=== PATIENT | female | born 1990 | race Caucasian/White ===

== ENCOUNTER 2024-01-03 09:08 | Outpatient (CLI) | payer OTHER, SELFPAY ==
[2024-01-03 09:34] LABS: Basophils Absolute Auto 0.1 K/mm3 (0.0-0.1); Eosinophils Absolute Auto 0.3 K/mm3 (0-0.3); Eosinophils Percent Auto 4.7 % (0-4.4); Hematocrit 42.4 % (37.0-47.0); Hemoglobin 13.8 g/dL (12.0-15.0); Immature Granulocyte Absolute 0.02 K/mm3 (0.00-0.031); Immature Granulocyte Percent A 0.3 % (0-0.5); Lymphocytes Absolute Auto 2.71 K/mm3 (0.9-3.2); Lymphocytes Percent Auto 38.7 % (18.3-44.2); Mean Corpuscular HGB Conc 32.5 g/dl (32-36); Mean Corpuscular Hemoglobin 29.5 pg (26-34); Mean Corpuscular Volume 90.6 fl (80-100); Mean Platelet Volume 8.4 fl (7.4-10.4); Monocytes Absolute Auto 0.6 K/mm3 (0.1-0.6); Monocytes Percent Auto 8.3 % (2.6-8.5); Neutrophils Absolute Auto 3.3 K/mm3 (1.3-6.7); Platelet Count Result 333 k/mm3 (150-375); Red Blood Count 4.68 M/mm3 (4.2-5.4); Red Cell Distribution Width 12.4 % (11.5-14.5)
== END 2024-01-03 09:09 | disposition home or self-care (01) ==
LOC: ANHSURGERY 09:19
PROVIDERS: Visit Provider Obstetrics & Gynecology
DX: Z01.818 Encounter for other preprocedural examination (principal); N94.6 Dysmenorrhea, unspecified
CPT/HCPCS: 36415; 85025; 86850; 86900; 86901

== ENCOUNTER 2024-01-06 00:45 | Day surgery (SDC) | payer OTHER, SELFPAY ==
[2023-12-30 10:01] VITALS: BMI 28.5
--- NOTE | 2023-12-30 10:08 | PC.NURSE ---
Report to the Outpatient Waiting Room, entrance under the green pavilion located off [facility], at time _0730_ on date _[id number]_. Planned Procedure Time: _0930_. Time changes happen often and if your time is changed the preop area will call you the afternoon before. - You and your visitor will be asked to self-screen and do not enter if you have any COVID symptoms. - A mask is optional within the hospital at this time. Patients may have clear liquids (water, carbonated beverages, clear teas, apple juice) until 3 hours prior to surgery with a maximum of 20 ounces. - No food from midnight until time of surgery Take the following medications with a SIP of water the morning of surgery: __Bupropion DO NOT STOP ANY OF YOUR OTHER PRESCRIPTION MEDICATIONS PRIOR TO SURGERY ?EXCEPT THE FOLLOWING Medications to discontinue per physician ____None Date to take last dose Please no make-up, nail paraguayan, hairspray, perfume, deodorant, or body powder the day of surgery. No jewelry (including any body piercings) or valuables the day of surgery, leave them at home. Please take a shower or bath the night before, or the morning of, surgery with an antibacterial soap. Wear comfortable, loose fitting clothing. - Jewelry must be removed prior to entering the operating room. Rings and piercings that are not removed may be cut off. - The hospital will not accept responsibility for valuables. - Please leave all valuables, including medications, at home the day of surgery. If you are going home after surgery, a licensed powder truck driver must drive you home. - NO public transportation without another adult if you receive anesthesia. - We recommend that an adult stay with you for 24 hours following discharge. - We also recommend that you do not drive, make important decision, drink alcoholic beverages, or take any drugs that were not prescribed by your health care provider for at least 24 hours after your discharge time. Follow any additional instructions given to you from your surgeon. If you or anyone in your household have experienced Covid symptoms in the past week, please notify your surgeon or the nurse liaison at the phone number below for possible testing. Telephone instructions given to _Michelle__and asked if any additional questions and then verbalized understanding. Patient advised to call surgeon office or pre surgery nurse liaison [phone] if any additional questions.
--- NOTE | 2024-01-03 06:54 | PM.IMHP ---
H&P: HPI History of Present Illness Date/Time: 01/03/24 06:54 Chief Complaint: Pelvic pain and prolapse Narrative: 33-year-old 2 para 2 admitted for robotic hysterectomy and bilateral salpingectomy secondary to second-degree prolapse bleeding this been refractory to medical therapy. She also has pelvic pain. She opts for hysterectomy. Risks and benefits reviewed including not exclusive of , aspiration pneumonia, bleeding, transfusion, perforation injury to bowel, bladder, ureters, or other internal organs with need for open laparotomy. She received the [employer] handout entitled hysterectomy as well as the Tai handout. She had all questions answered. She asked to proceed PMF Social History Social History Smoking packs per day: 0.5 Smoking cigarettes per day: 10.0 Years smoked: 10 Smoking pack-years: 5.00 Smoking status: Current every day smoker Tobacco type: cigarettes Living arrangements: with family Spiritual care concerns: No Meds Home Medications and Allergies Home Medications Medication Instructions Recorded Confirmed Type bupropion HCl 100 mg tablet 100 mg PO BID 12/30/23 12/30/23 History Allergies Allergy/AdvReac Type Severity Reaction Status Date / Time No Known Allergies Allergy Verified 12/30/23 10:00 Exam Const: General: cooperative, healthy appearing and comfortable Orientation/consciousness: oriented to person, oriented to place and oriented to time HENMT: Head: normal to inspection Resp: Effort & Inspection: normal respiratory effort Cardio: Rate: regular rate Rhythm: regular rhythm Heart sounds: S1 normal heart sound present and S2 normal heart sound present GI: Inspection: normal to inspection Auscultation: normal bowel sounds : External Female Exam: normal external appearance Speculum Exam - Vagina: normal appearance of the vagina Speculum Exam - Cervix: normal appearance of the cervix (Second-degree prolapse noted) Bimanual exam- vagina & uterus: enlarged and Uterine tenderness Bimanual Exam- Adnexa, other: normal adnexae Assessment and Plan Assessment and plan (1) Uterine prolapse: Code(s): N81.4 - Uterovaginal prolapse, unspecified Status: Acute (2) Pelvic pain: Code(s): R10.2 - Pelvic and perineal pain Status: Acute Plan Robotic total vaginal hysterectomy and bilateral salpingectomy
[2024-01-06] VITALS (9 sets, daily range): BP systolic 120–151; BP diastolic 71–90; PULSE 71–99; RESP 12–17; TEMP 36.3–36.9; O2SAT 98–100; BMI 29.1
--- NOTE | 2024-01-06 05:15 | WPDHPUPDATE1 ---
History and Physical Update Update Date/Time: 01/06/24 05:15 History and Physical has been reviewed, including an updated exam of the patient. There are NO changes in the patient's condition. Risks, benefits, and alternatives have been discussed and questions answered. Patient agrees to proceed with procedure.
[2024-01-06] MEDS: ACETAMINOPHEN 500 MG TABLET 1000 MG PO (07:57)
[2024-01-06] MEDS: KETOROLAC 15 MG/ML VIAL (*BKC) IV PUSH (07:57)
--- NOTE | 2024-01-06 08:45 | WPDANESEPPF ---
Anes - Initial Pre Proc Eval Procedure: Operation Date: 01/06/24 09:30 Proposed Procedures p Robotic Assisted Total Vaginal Hysterectomy with Bilateral Salpingectomy - Yossi West MD Date/Time: 01/06/24 08:45 Surgeon: Yossi West MD Pre Op Diagnosis: uterine prolapse, pelvic pain, dysmenorrhea, Patient Data Age: 33 Gender: F Height: 1.75 m Weight: 89.6 kg Last Vital Signs Temp 97.3 F L 01/06/24 07:20 Pulse 81 01/06/24 07:20 Resp 16 01/06/24 07:20 BP 124/78 01/06/24 07:20 Pulse Ox 99 01/06/24 07:20 O2 Del Method Room Air 01/06/24 07:20 Allergies Allergy/AdvReac Type Severity Reaction Status Date / Time No Known Allergies Allergy Verified 01/06/24 08:01 Home Medications Medication Instructions Recorded Confirmed Type bupropion HCl 100 mg tablet 100 mg PO BID 12/30/23 12/30/23 History hydrocodone 5 mg-acetaminophen 325 1 tablet PO Q4H PRN pain #30 tabs 01/06/24 Rx mg tablet Patient hx anesthesia problems: none Family hx anesthesia problems: none Results Review: All pre-operative results and documents have been reviewed as part of the pre-operative evaluation. [facility] Social History Social History Smoking packs per day: 0.5 Smoking cigarettes per day: 10.0 Years smoked: 10 Smoking pack-years: 5.00 Smoking status: Current every day smoker Tobacco type: cigarettes Living arrangements: with family Spiritual care concerns: No Anes - Eval Final PreProcedure Day of Procedure 01/06/24 08:45 Patient weight: normal Heart: regular rate and rhythm Lungs: clear to auscultation Airway: Mallampati scale class II Neurological: alert and oriented Last oral intake: >/= 8 hours ASA classification: II Emergent: no Anesthetic plan: proceed Anesthesia type and monitoring: general ETT and standard monitoring Results Review: All pre-operative results and documents have been reviewed as part of the pre-operative evaluation. Informed Consent: The patient's anesthetic plan and its attendant risks and benefits were discussed with the patient/family/POA. Questions were solicited and answers provided to the satisfaction of the patient/family/POA.
[2024-01-06] MEDS: LACTATED RINGERS 1,000 ML 30 ML IV CONT ×2 (09:04→10:50)
[2024-01-06] MEDS: ceFAZolin 2 GM/D5W 50 ML 2 GM/50 ML BAG IVPB (09:32)
--- NOTE | 2024-01-06 10:35 | P.OP_ITS ---
Procedure Note - Detailed Date of Procedure 01/06/24 Pre-op Diagnosis uterine prolapse, pelvic pain, dysmenorrhea, Post-op Diagnosis Same Procedure Performed Robotic total vaginal hysterectomy and bilateral salpingectomy Surgeon Yossi West MD Anesthesia General Indications 33-year-old female with severe pelvic pain dyspareunia uterine prolapse Findings large uterus with uterine prolapse normal-appearing ovaries and tubes Description of Procedure patient was prepped draped in the normal sterile fashion placed in the dorsal lithotomy position. Under excellent general trach anesthesia weighted speculum placed in posterior fornix vagina. Anterior lip of the cervix grasped with single-tooth tenaculum. Uterus sounded to 10cm. Serial dilatation fragment down performed followed passes the 10. RUTH and the 3. Cold cup. Next the 16 Hungarian catheter was placed and bladder drained clear urine. The weighted speculum was removed and the gloves were changed. A supraumbilical incision made the Veress needle passed in the abdomen. Abdomen filled with CO2 gas [id number]. 8mm trocar advanced the abdomen. Downside visualized no injury seen. Patient placed in Trendelenburg and a s right and left lateral quadrant incisions made and 8mm trocars advanced under direct visualization. Right upper quadrant incision made 8mm trocar advanced under direct visualization all assuring no injury to the internal organs. The robot was docked. Attention was turned to the procedure. The left round ligament was grasped, burned, cut. Anteriorly the bladder was markedly adherent to the midportion to fundus of the uterus layer by layer this was brought down to the peritoneum until the bladder could be read reflected away from the cervix uterus the opposite round ligament which was clamped, burned, cut. Next the fallopian tube was sharply dissected away from the ovarian complex left attached to the uterus. In similar fashion the right fallopian tube was dissected away from the ovary and left attached to the uterine origin. Next the utero-ovarian ligament on the left was skeletonized to conserve the left ovary. This was clamped, burned, cut and brought to the level of previously cut round ligament. In similar fashion the utero-ovarian ligament was skeletonized to conserve the right ovary. This was clamped, burned, cut and brought to level of previously cut round ligament. The cardinal broad ligaments on the left were then serially skeletonized clamping burning cutting and bringing this down the lateral edge of the uterus until the uterine vessels could be seen. These were individually clamped, burned, cut. In similar fashion on the right the cardinal broad ligaments were skeletonized clamping burning cutting and hugging the cervix uterus until uterine vessels could be seen on the right these were individually clamped, burned, cut. Good blanching the uterus was noted and a colpotomy incision made. This uterus cervix and tubes removed through the vagina. The vagina was closed with continuous running 0V lock from lateral edge to lateral edge back the midline. Irrigation undertaken until clear. The hemostasis was assured. The robot was undocked. The gas removed from the abdomen. The trocars removed and the incisions closed with 4-0 Monocryl and glue. The instruments removed from the vagina the patient was awakened went to recovery in satisfactory condition. All sponge, needle, instrument counts were correct. There were no immediate complications Estimated Blood Loss 25 Drains No Packing No Pathology Yes Complications No immediate complications Condition Stable Disposition PACU
--- NOTE | 2024-01-06 10:40 | PM.DS ---
DS: Admitting Diagnosis Discharge Date 01/06/2024 Admitting Diagnosis pelvic pain /uterine prolapse DS: Discharge Diagnosis Discharge Diagnosis (1) Pelvic pain: Code(s): R10.2 - Pelvic and perineal pain Status: Acute (2) Uterine prolapse: Code(s): N81.4 - Uterovaginal prolapse, unspecified Status: Acute DS: Summary Hospital Course Reason for hospitalization: patient was admitted on 01/06/2024 for robotic total vaginal hysterectomy and bilateral salpingectomy. Procedure was unremarkable Hospital Course: patient's hospital course unremarkable. She remained afebrile. She was up, voiding without difficulty, eating regular diet, ambulating, generally without complaints. Routine discharge instructions were given Time Spent with Patient Time attestation: Total time spent providing and/or coordinating discharge services: Exam Const: General: cooperative, healthy appearing and comfortable Nutritional Appearance: average body habitus Orientation/consciousness: oriented to person, oriented to place and oriented to time HENMT: Head: normal to inspection Resp: Effort & Inspection: normal respiratory effort Cardio: Rate: regular rate Rhythm: regular rhythm Heart sounds: S1 normal heart sound present and S2 normal heart sound present GI: Inspection: normal to inspection and incision ( wounds are clean dry and intact) DS: Data Data Completed and Pending Pending studies at discharge: Pending at discharge 01/06/24 10:02 Surgical [PTH] Routine Discharge Plan Discharge Patient Disposition: Home, Self-Care Patient Instructions: Hysterectomy (DC) Stand Alone Forms: General Discharge Instructions Follow-up/Referrals: Yossi Milligan MD [Physician] - Discharge Medications: New hydrocodone-acetaminophen 5-325 mg tablet 1 tablet PO Q4H PRN (Reason: pain) Qty: 30 0RF No Action bupropion HCl 100 mg Tablet 100 mg PO BID
[2024-01-06] MEDS: fentaNYL CITRATE INJ (*CRX) 100 MCG/2 ML VIAL 25 MCG IV PUSH ×2 (11:20→11:22)
--- NOTE | 2024-01-06 12:15 | ADMGEN ---
This patient, Michelle Dee, was admitted to OB 2nd Floor Room 279-00. Patient/family oriented to hospital policies and general routines including ID bracelet, bed and alarms, visiting hours, pain management, procedures, bathroom and other care routines, personal items, smoking policy, room service/diet, and visiting hours. Information on how to activate the Rapid Response Team has been discussed. Patient/Family are encouraged to report perceived risks to care and to ask questions if they do not understand what they are told or what they should do.
[2024-01-06] MEDS: SIMETHICONE 80 MG TAB.CHEW PO ×2 (12:55→17:45)
[2024-01-06] MEDS: DEXTROSE 5%/LACTATED RINGERS 1,000 ML 125 ML IV CONT (12:55)
[2024-01-06] MEDS: DOCUSATE SODIUM 100 MG CAPSULE PO (17:45)
== END 2024-01-06 18:33 | disposition home or self-care (01) ==
LOC: ANHSURGERY 07:14 → ANHOB2 12:20
PROVIDERS: Visit Provider Obstetrics & Gynecology
PROC: (CPT 58552; principal; 2024-01-06 09:30)
DX: N81.4 Uterovaginal prolapse, unspecified (principal); N94.6 Dysmenorrhea, unspecified; N72 Inflammatory disease of cervix uteri; N87.9 Dysplasia of cervix uteri, unspecified; N83.8 Other noninflammatory disorders of ovary, fallopian tube and broad ligament; F17.210 Nicotine dependence, cigarettes, uncomplicated
CPT/HCPCS: 58552; S2900; 36415; 85025; 86850; 86900; 86901; 88307; 99199; A9270; J0330; J0690; J1100; J1885; J2250; J2405; J2704; J3010; J7030; J7120; J7121